=== PATIENT | male | born 1980 | race African-American/Black ===

== ENCOUNTER 2016-06-13 10:21 | Emergency (ER) | payer SELFPAY ==
[~2016-06-13] VITALS: Ht 180.3 cm; Wt 77.0 kg
[2016-06-13 10:28] VITALS: TEMP 36.9; Ht 180.3 cm; Wt 77.0 kg
--- NOTE | 2016-06-13 11:30 | DIAGNOSTIC IMAGING REPORT ---
LEFT KNEE 3 VIEWS HISTORY: left knee pain COMPARISON: None. FINDINGS: There is no fracture or dislocation. Soft tissues are unremarkable. No radiopaque foreign bodies. No knee effusion. IMPRESSION: No fractures. Electronically signed by: Misael Herrmann M.D. 06/13/2016 11:28 AM Dictated Date/Time: 06/13/2016 11:26 AM
[2016-06-13 12:26] VITALS: BP 125/62; PULSE 76; O2SAT 98
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
== END 2016-06-13 12:36 | disposition home or self-care (01) ==
LOC: C.EDB 10:22 → C.EDD 12:36
DX: M25.562 Pain in left knee (principal)